=== PATIENT | male | born 1965 | race Caucasian/White ===

== ENCOUNTER 2020-12-19 07:21 | Emergency (ER) | payer OTHER ==
[~2020-12-19] VITALS: Ht 167.6 cm; Wt 81.6 kg
[2020-12-19 07:23] VITALS: BP 209/96
--- NOTE | 2020-12-19 07:28 | NUR ---
PT AMB TO BED 11.
--- NOTE | 2020-12-19 07:33 | NUR ---
BEDSIDE EVALUATING PT
[2020-12-19] MEDS ORDERED: FLUORESCEIN OPTH STRIP 1 MG OP ONE (07:35)
[2020-12-19] MEDS ORDERED: ERYT5OIN51 OP ×2 (07:49→14:11)
--- NOTE | 2020-12-19 07:50 | NUR ---
NO NEED NURSING INTERVENTIONS, SEEN & TREATED BY DR WYNN.
--- NOTE | 2020-12-19 07:55 | NUR ---
Patient discharged with BP 209/96, DENIES [place] OR DIZZINESS AT THIS TIME, MD MADE AWARE. Written and verbal after care instructions given and explained. Patient alert, oriented and verbalized understanding of instructions. Ambulatory with to car. All questions addressed prior to discharge. ID band removed. Patient advised to follow up with PMD. Rx of ERYTHROMYCIN OINT given. Patient educated on indication of medication including possible reaction and side effects. Opportunity to ask questions provided and answered.
--- NOTE | 2020-12-19 07:55 | NUR ---
Note cd in EDM - 12/19/20 at 0757 by [facility] Patient discharged with v/s stable. Written and verbal after care instructions given and explained. Patient alert, oriented and verbalized understanding of instructions. Ambulatory with to car. All questions addressed prior to discharge. ID band removed. Patient advised to follow up with PMD. Rx of ERYTHROMYCIN OINT given. Patient educated on indication of medication including possible reaction and side effects. Opportunity to ask questions provided and answered.
[2020-12-19 07:56] VITALS: BP 209/96
== END 2020-12-19 07:55 | disposition home or self-care (01) ==
LOC: MED 07:21
DX: H10.9 Unspecified conjunctivitis (principal)
CPT/HCPCS: 99283

== ENCOUNTER 2021-04-09 04:56 | Emergency (ER) | payer OTHER ==
[~2021-04-09] VITALS: Ht 167.6 cm; Wt 83.9 kg
[~2021-04-09 04:56] MED LIST: ERYT5OIN51 OP
[2021-04-09 05:09] VITALS: BP 144/78
[2021-04-09] MEDS ORDERED: MUPI2CRE22 TP (05:32)
[2021-04-09] MEDS ORDERED: SULF-59 PO (05:32)
[2021-04-09 06:40] VITALS: BP 144/78
--- NOTE | 2021-04-09 06:50 | NUR ---
Patient discharged with v/s stable. Written and verbal after care instructions given and explained. Patient alert, oriented and verbalized understanding of instructions. Ambulatory with steady gait. All questions addressed prior to discharge. ID band removed. Patient advised to follow up with PMD. Rx of BACTRIM, MUPIROCIN given. Patient educated on indication of medication including possible reaction and side effects. Opportunity to ask questions provided and answered.
== END 2021-04-09 06:50 | disposition home or self-care (01) ==
LOC: MED 04:56
DX: L98.9 Disorder of the skin and subcutaneous tissue, unspecified (principal); Z79.899 Other long term (current) drug therapy
CPT/HCPCS: 99283

== ENCOUNTER 2022-02-23 14:49 | Emergency (ER) | payer OTHER ==
[~2022-02-23 14:49] MED LIST changes: +MUPI2CRE22 TP; +SULF-59 PO
--- NOTE | 2022-02-23 15:21 | NUR ---
CALLED X1. NO SHOW. Addendum: 02/23/[address] [facility] PATIENT LEFT WITHOUT BEING SEEN BY DR. GONZALES. NO FURTHER CARE PROVIDED FOR PATIENT.
--- NOTE | 2022-02-23 15:23 | NUR ---
CALLED [phone]. PT STATED"I AM HOME.
== END 2022-02-23 15:21 | disposition left against medical advice (07) ==
LOC: MED 14:49
DX: R10.9 Unspecified abdominal pain (principal); Z53.21 Procedure and treatment not carried out due to patient leaving prior to being seen by health care provider

== ENCOUNTER 2022-03-04 13:09 | Emergency (ER) | payer OTHER ==
[~2022-03-04] VITALS: Ht 167.6 cm; Wt 85.7 kg
[2022-03-04 13:25] VITALS: BP 150/90
[2022-03-04] MEDS ORDERED: IBUPROFEN 600 MG TAB PO ONE (14:05)
--- NOTE | 2022-03-04 14:25 | NUR ---
PT AMB TO ER BED 3
--- NOTE | 2022-03-04 15:45 | NUR ---
Pt reports no pain at this time. Pt sitting in bed comfortably. All needs met at this time.
[2022-03-04] MEDS ORDERED: IBUP-2213 PO (16:01)
[2022-03-04 16:07] VITALS: BP 158/96
--- NOTE | 2022-03-04 16:07 | NUR ---
Patient discharged with v/s stable. Written and verbal after care instructions about renal cyst and kidney stones given and explained. Patient alert, oriented and verbalized understanding of instructions. Ambulatory with steady gait. All questions addressed prior to discharge. ID band removed. Patient advised to follow up with PMD. Rx of Ibuprofen given. Patient educated on indication of medication including possible reaction and side effects. Opportunity to ask questions provided and answered.
== END 2022-03-04 16:07 | disposition home or self-care (01) ==
LOC: MED 13:09
DX: N28.1 Cyst of kidney, acquired (principal); N20.0 Calculus of kidney; I10 Essential (primary) hypertension; Z79.899 Other long term (current) drug therapy
CPT/HCPCS: 76770; 81002; 99284; Q0092

== ENCOUNTER 2023-01-08 12:27 | Emergency (ER) | payer OTHER ==
[~2023-01-08] VITALS: Ht 167.6 cm; Wt 81.6 kg
[~2023-01-08 12:27] MED LIST changes: +IBUP-2213 PO
[2023-01-08 12:56] VITALS: BP 167/82; PULSE 87; RESP 14; TEMP 96.8; O2SAT 97
[2023-01-08] MEDS ORDERED: LID5T TP (13:43)
== END 2023-01-08 13:48 | disposition home or self-care (01) ==
LOC: MED 12:27
DX: M19.011 Primary osteoarthritis, right shoulder (principal); I10 Essential (primary) hypertension; Z79.899 Other long term (current) drug therapy; Z79.1 Long term (current) use of non-steroidal anti-inflammatories (NSAID); Z79.2 Long term (current) use of antibiotics
CPT/HCPCS: 99283